=== PATIENT | female | born 1955 | race African-American/Black ===

== ENCOUNTER 2016-10-12 05:24 | Emergency (ER) | payer OTHER ==
--- NOTE | 2016-10-12 06:23 | ER Document Report ---
ED Cardiac - General Mode of Arrival: Ambulatory Information source: Patient TRAVEL OUTSIDE OF THE [place] IN LAST 30 DAYS: No - HPI Patient complains to provider of: Other - chest heaviness Quality of pain: Heaviness Severity now: Mild Severity at worst: Mild <АННА CARSON - Last Filed: 10/12/16 14:58> <ALBERTO ROBBINS - Last Filed: 10/20/16 22:47> - General Chief Complaint: Chest Pain Stated Complaint: CHEST PAIN Notes: Patient is a 61-year-old female who presents to the emergency department today with complaints of chest heaviness with a cough. Patient states she has had this cough for approximately 2 weeks and has had an associated chest heaviness with the cough. Patient states the heaviness is "all over her chest". Patient attempts to describe this heaviness, stating that she feels like she needs to bring something up with the cough but she cannot. Patient states that her cough is usually worse in the mornings. Patient states that she saw a rn internship approximately 2 months ago at the [facility] and she assumes the findinsg were unremarkable as she was never called with results. Patient states the initiating event that had her come to the emergency department today was the fact that she could not sleep overnight last night so that made her nervous. Patient states she has had mild accompanying nausea. Patient denies any shortness of breath, vomiting, diarrhea, or history of PE/DVT. (АННА CARSON) - Related Data Allergies/Adverse Reactions: No Known Allergies Allergy (Unverified 01/12/16 02:10) Home Medications: Current Home Medications Diltiazem HCl [Diltiazem ER] 180 mg PO DAILY 10/12/16 [History] Levothyroxine Sodium [Synthroid 0.15 mg Tablet] 0.15 mg PO DAILY 10/12/16 [ History] Past Medical History - General Information source: Patient - Social History Smoking Status: Never Smoker Cigarette use (# per day): No Frequency of alcohol use: None Drug Abuse: None Lives with: Family Family History: Reviewed & Not Pertinent Patient has suicidal ideation: No Patient has homicidal ideation: No - Past Medical History Cardiac Medical History: Reports: Hx Congestive Heart Failure, Hx Heart Attack, Hx Hypercholesterolemia, Hx Hypertension Pulmonary Medical History: Reports: Hx Asthma Endocrine Medical History: Reports: Hx Hypothyroidism Psychiatric Medical History: Reports: Hx Depression Surgical Hx: Negative <АННА CARSON - Last Filed: 10/12/16 14:58> Review of Systems - Review of Systems Constitutional: No symptoms reported EENT: No symptoms reported Cardiovascular: See HPI, Chest pain Respiratory: See HPI, Cough, Other - chest heaviness. denies: Short of breath Gastrointestinal: See HPI, Nausea. denies: Diarrhea, Vomiting Genitourinary: No symptoms reported Female Genitourinary: No symptoms reported Musculoskeletal: No symptoms reported Skin: No symptoms reported Hematologic/Lymphatic: No symptoms reported Neurological/Psychological: No symptoms reported -: Yes All other systems reviewed and negative <АННА CARSON - Last Filed: 10/12/16 14:58> Physical Exam <АННА CARSON - Last Filed: 10/12/16 14:58> <ALBERTO ROBBINS - Last Filed: 10/20/16 22:47> - Vital signs Vitals: Pulse Ox 99 10/12/16 05:55 - Notes Notes: Physical Exam: General: Alert, appears well. HEENT: Normocephalic. Atraumatic. PERRL. Extraocular movements intact. Oropharynx clear. Neck: Supple. Non-tender. Respiratory: No respiratory distress. Clear and equal breath sounds bilaterally. Cardiovascular: Regular rate and rhythm. Abdominal: Normal Inspection. Non-tender. No distension. Normal Bowel Sounds. Back: Non-tender. No deformity or step off. Extremities: Moves all four extremities. Upper extremities: Normal inspection. Normal ROM. Lower extremities: Normal inspection. No edema. Normal ROM. Neurological: Normal cognition. AAOx4. Normal speech. Psychological: Normal affect. Normal Mood. Skin: Warm. Dry. Normal color. (АННА CARSON) Course - Laboratory Result Diagrams: 10/12/16 06:22 10/12/16 06:22 <АННА CARSON - Last Filed: 10/12/16 14:58> - Laboratory Result Diagrams: 10/12/16 06:22 10/12/16 06:22 <ALBERTO ROBBINS - Last Filed: 10/20/16 22:47> - Re-evaluation Re-evalutation: 10/12/16 14:58 (АННА CARSON) 10/12/16 07:32 Patient presents emergency room chiefly 2 week history of cough and says that she gets tightness in her chest with the cough. It is not associated with sputum production fevers chills recent history of travel surgery immobilization DVT or pulmonary emboli. He has no history of congestive heart failure denies any CO or stents. States that this is not exertional she does not get diaphoretic nauseated no GI upset. She just wishes that she could get something up when she is coughing. She is well-appearing nontoxic in no acute distress with stable vital signs negative acute EKG cardiac enzymes and x-ray. Spoke with the on-call rn internship Dr. Kemp who agreed the patient to be discharged home if his cell phone number which I wrote in the chart for her she is call for follow-up appointment in 2-3 days and discussed reasons for ED return sooner Dr. Carlos cardiology paged via peripheral edp equipment operator at 07:32 will call back is in the shower 10/12/16 15:53 (ALBERTO ROBBINS) - Vital Signs Vital signs: Temp Pulse Resp BP Pulse Ox 98.0 F 82 25 H 185/90 H 99 10/12/16 09:13 10/12/16 05:56 10/12/16 09:01 10/12/16 09:01 10/12/16 09:01 - Laboratory Laboratory results interpreted by me: 10/12/16 06:22 RBC 5.75 H MCV 76 L MCH 24.1 L MCHC 31.7 L RDW 15.0 H Seg Neutrophils % 80.4 H Discharge <АННА CARSON - Last Filed: 10/12/16 14:58> <ALBERTO ROBBINS - Last Filed: 10/20/16 22:47> - Discharge Clinical Impression: Bronchitis, Nonspecific chest pain Condition: Stable Disposition: HOME, SELF-CARE Additional Instructions: Bronchitis You have acute bronchitis. This disease is an infection or inflammation of the air passageways in your lungs. Symptoms usually include cough, low grade fever, shortness of breath, and wheezing. The cough usually persists for a couple of weeks. Most cases of bronchitis get better without antibiotics. We prescribe antibiotics when we believe bacteria are damaging your airways, or if there's high risk the bronchitis will worsen into pneumonia. Increase your fluid intake. A cool mist humidifier may make your lungs more comfortable. An expectorant (cough medicine that loosens phlegm) can help. If you smoke, STOP!!! Recovery from bronchitis can be somewhat slow, but you should see improvement within a day or two. Repeated episodes of bronchitis may result in lung damage -- for example, chronic bronchitis, recurrent pneumonias, or emphysema. Call the doctor if you develop increasing fever, shortness of breath, chest pain, bloody sputum, or otherwise worsen. If you have not improved at all after several days, contact the physician. Chest Pain of Unclear Cause The exact cause of your chest pain isn't clear. Fortunately, there is no evidence of a dangerous medical condition. Further testing may be required to find the source of the pain. Most often, we find that this pain is coming from the chest wall -- the muscles or rib joints in the chest. But chest pain can come from the lung and lung lining, the esophagus, the heart valves or heart lining, and even the stomach or gallbladder. Rest. Eat lightly until the pain is gone. We may prescribe medicine for pain and inflammation. You should call the physician immediately if the pain radiates to the shoulder, jaw or arms; if you start to run a fever or develop a cough; or if you develop shortness of breath, or other new or alarming symptoms. Referrals: MICHELLE ORTA, PNP [Primary Care Provider] - (In call Dr. Carlos at [phone] he is a heart doctor and will arrange for you to be seen in follow-up return for increasing worsening or new symptoms) Scribe Attestation: 10/12/16 09:14 I personally performed the services described in the documentation reviewed the documentation recorded by my scribe in my presence and it accurately and completely records my words and actions (ALBERTO ROBBINS) Scribe Documentation - Scribe Written by Marcia:: Marcia Chacon, 10/12/2016 0827 acting as scribe for :: Fady <АННА CARSON - Last Filed: 10/12/16 14:58>
[2016-10-12 06:47] LABS: ABSOLUTE LYMPHOCYTES (AUTO) 1.2 10^3/uL (0.5-4.7); ABSOLUTE MONOCYTES (AUTO) 0.3 10^3/uL (0.1-1.4); ABSOLUTE NEUT (AUTO) 6.3 10^3/uL (1.7-8.2); BASOPHILS % (AUTO) 0.4 % (0-2); EOSINOPHILS % (AUTO) 0.4 % (0-6); HEMATOCRIT 43.8 % (36.0-47.0); HEMOGLOBIN 13.9 g/dL (12.0-15.5); HGB HCT DIFFERENCE -2.1; LYMPHOCYTES % (AUTO) 14.8 % (13-45); MEAN CORPUSCULAR HEMOGLOBIN 24.1 pg (27.0-33.4); MEAN CORPUSCULAR HGB CONC 31.7 g/dL (32.0-36.0); MEAN CORPUSCULAR VOLUME 76 fl (80-97); RED BLOOD COUNT 5.75 10^6/uL (3.72-5.28); SEGMENTED NEUTROPHILS % (AUTO) 80.4 % (42-78); WHITE BLOOD COUNT 7.9 10^3/uL (4.0-10.5)
[2016-10-12 07:03] LABS: ANION GAP 12 (5-19); BLOOD UREA NITROGEN 18 mg/dL (7-20); CALCIUM 9.3 mg/dL (8.4-10.2); CARBON DIOXIDE 25 mmol/L (22-30); CHLORIDE 103 mmol/L (98-107); GLUCOSE 90 mg/dL (75-110); SODIUM 139.8 mmol/L (137-145)
--- NOTE | 2016-10-12 07:03 | RADIOLOGY REPORT (SQ) ---
EXAM DESCRIPTION: CHEST PA/LAT COMPLETED DATE/TIME: 10/12/2016 6:45 am REASON FOR STUDY: chest pain/ cough COMPARISON: 01/12/2016. EXAM PARAMETERS: NUMBER OF VIEWS: two views TECHNIQUE: Digital Frontal and Lateral radiographic views of the chest acquired. RADIATION DOSE: NA LIMITATIONS: none FINDINGS: LUNGS AND PLEURA: Moderate lung volume. Small atelectasis or scar of the left lower lobe. Interval improvement compared with prior exam from December 2015. MEDIASTINUM AND HILAR STRUCTURES: No masses or contour abnormalities. HEART AND VASCULAR STRUCTURES: Heart normal size. No evidence for failure. BONES: No acute findings. HARDWARE: None in the chest. OTHER: No other significant finding. IMPRESSION: NO SIGNIFICANT RADIOGRAPHIC FINDING IN THE CHEST. TECHNICAL DOCUMENTATION: JOB ID: [id number] [employer]- All Rights Reserved
[2016-10-12 07:16] LABS: TROPONIN I < 0.012 ng/mL
[2016-10-12] MEDS ORDERED: LISINOPRIL 10 MG TABLET PO ONE (07:30)
[2016-10-12] MEDS ORDERED: DILTIAZEM HCL 180 MG CAPSULE.CR PO ONE (07:31)
--- NOTE | 2016-10-12 08:50 | EKG REPORT ---
SEVERITY:- ABNORMAL ECG - SINUS RHYTHM PROBABLE LEFT ATRIAL ABNORMALITY LEFT VENTRICULAR HYPERTROPHY : Confirmed by: aKsie Butler 12-Oct-2016 08:50:01
[2016-10-12 09:05] VITALS: BP 185/90
== END 2016-10-12 09:23 | disposition home or self-care (01) ==
LOC: ER 05:24
DX: J40 Bronchitis, not specified as acute or chronic (principal); R07.9 Chest pain, unspecified; R05 Cough; R11.0 Nausea; Z79.899 Other long term (current) drug therapy
CPT/HCPCS: 36415; 71020; 80048; 83880; 84484; 85025; 93005; 93010; 99285

== ENCOUNTER → 2017-02-01 | Outpatient (CLI) | payer OTHER ==
--- NOTE | 2017-02-01 08:51 | WOMENS IMAGING REPORT ---
EXAM DESCRIPTION: BILAT SCREENING MAMMO W/CAD COMPLETED DATE/TIME: 02/01/2017 7:48 am REASON FOR STUDY: SCREENING MAMMO Z12.31 ENCNTR SCREEN MAMMOGRAM FOR MALIGNANT NEOPLASM OF THA COMPARISON: 08/16/2011, 03/20/2013 TECHNIQUE: Standard craniocaudal and mediolateral oblique views of each breast recorded using [employer] l acquisition. LIMITATIONS: None. FINDINGS: No masses, calcifications or architectural distortion. No areas of suspicion. Read with the assistance of CAD. .[facility] - R2 Cenova Version 1.3 .[facility] - R2 Cenova Version 1.3 .[facility] - R2 Cenova Version 2.4 .[facility] [place] R2 Cenova Version 2.4 .[facility] - R2 Top Cutter Version 9.2 IMPRESSION: NORMAL MAMMOGRAM. BIRADS 1. BREAST DENSITY: b. There are scattered areas of fibroglandular density. BIRAD: 1 NEGATIVE RECOMMENDATION: ROUTINE SCREENING COMMENT: The patient has been notified of the results by letter per SA requirements. Additional no tification policies are in place for contacting patient with suspicious or incomplete findings. Quality ID #[id number]: The [employer] recommends an annual screening mammogram for women aged 40 years or over. This facility utilizes a reminder system to ensure that all patients receive reminder letters, and/or direct phone calls for appointments. This includes reminders for routine scr eening mammograms, diagnostic mammograms, or other Breast Imaging Interventions when appropriate. Th is patient will be placed in the appropriate reminder system. The [employer] (ACR) has developed recommendations for screening MRI of the breast s in certain patient populations, to be used in conjunction with mammography. Breast MRI surveillanc e may be appropriate for women with more than 20% lifetime risk of developing breast cancer as deter mined by genetic testing, significant family history of the disease, or history of mantle radiation f or Hodgkins Disease. ACR Practice Guidelines 2008. TECHNICAL DOCUMENTATION: FINDING NUMBER: (1) ASSESSMENT: (1) JOB ID: [id number] [employer]- All Rights Reserved
== END ==
LOC: WI 07:34
PROVIDERS: ATTEND Nurse Practitioner
DX: Z12.31 Encounter for screening mammogram for malignant neoplasm of breast (principal)
CPT/HCPCS: 77067; G0202

== ENCOUNTER 2017-11-27 16:35 | Emergency (ER) | payer OTHER ==
[2017-11-27] MEDS ORDERED: NORMAL SALINE 1000 ML 1,000 ML IV ONE (17:59)
[2017-11-27] MEDS ORDERED: ONDANSETRON HCL INJ/PF 4 MG/2 ML SDV IV ONE (17:59)
--- NOTE | 2017-11-27 18:02 | ER Document Report ---
ED Medical Screen (RME) - General Chief Complaint: Nausea/Vomiting Stated Complaint: NAUSEA/VOMITING Time Seen by Provider: 11/27/17 17:58 Notes: 62-year-old female presents to the ER with nausea and vomiting that began on Monday. Patient went to [facility] urgent care and had an x-ray and lab work. Was told it was a virus and discharged home. She continued to vomit even after being prescribed Zofran for home. States she is having some abdominal discomfort. Mainly upper. She thinks it is mainly from the vomiting. She denies any chest pain. She states she cannot keep anything down and is come here to the ER. TRAVEL OUTSIDE OF THE [place] IN LAST 30 DAYS: No - Related Data Allergies/Adverse Reactions: No Known Allergies Allergy (Unverified 01/12/16 02:10) Past Medical History - Past Medical History Cardiac Medical History: Reports: Hx Congestive Heart Failure, Hx Heart Attack, Hx Hypercholesterolemia, Hx Hypertension Denies: Hx DVT, Hx Pulmonary Embolism Pulmonary Medical History: Reports: Hx Asthma Neurological Medical History: Denies: Hx Seizures Endocrine Medical History: Reports: Hx Hypothyroidism. Denies: Hx Diabetes Mellitus Type 1, Hx Diabetes Mellitus Type 2, Hx Hyperthyroidism Renal/ Medical History: Denies: Hx Peritoneal Dialysis GI Medical History: Denies: Hx Cirrhosis, Hx Hepatitis Musculoskeltal Medical History: Denies Hx Arthritis Skin Medical History: Denies Hx Eczema, Denies Hx Psoriasis Psychiatric Medical History: Reports: Hx Depression Infectious Medical History: Denies: Hx Hepatitis Past Surgical History: Reports: Hx Section Physical Exam - Vital signs Vitals: Temp Resp BP Pulse Ox 98.3 F 16 194/96 H 99 11/27/17 16:40 11/27/17 16:40 11/27/17 16:40 11/27/17 16:40 - Notes Notes: Abdomen is soft and supple there is a mild epigastric discomfort. No rebound or guarding is noted bowel sounds are diminished Course - Re-evaluation Re-evalutation: 11/27/17 18:01 The patient arrives with nausea and vomiting. She has been seen and given Zofran at [place] urgent care. However she continues to vomit even with Zofran at home. We will give her some IV fluids and IV Zofran we will check some generalized lab work she had an x-ray this afternoon we will get a CT scan without contrast to further differentiate. - Vital Signs Vital signs: Temp Pulse Resp BP Pulse Ox 98.3 F 16 194/96 H 99 11/27/17 16:40 11/27/17 16:40 11/27/17 16:40 11/27/17 16:40 Doctor's Discharge - Discharge Referrals: MATHIEU CAMARGO FNP [Primary Care Provider] - Follow up as needed
[2017-11-27 19:10] LABS: ABSOLUTE LYMPHOCYTES (AUTO) 0.9 10^3/uL (0.5-4.7); ABSOLUTE MONOCYTES (AUTO) 0.4 10^3/uL (0.1-1.4); ABSOLUTE NEUT (AUTO) 7.5 10^3/uL (1.7-8.2); BASOPHILS % (AUTO) 0.3 % (0-2); EOSINOPHILS % (AUTO) 0.3 % (0-6); HEMATOCRIT 40.6 % (36.0-47.0); HEMOGLOBIN 13.1 g/dL (12.0-15.5); LYMPHOCYTES % (AUTO) 9.7 % (13-45); MEAN CORPUSCULAR HGB CONC 32.3 g/dL (32.0-36.0); MEAN CORPUSCULAR VOLUME 75 fl (80-97); MONOCYTES % (AUTO) 4.8 % (3-13); PLATELET COUNT 240 10^3/uL (150-450); RED BLOOD COUNT 5.46 10^6/uL (3.72-5.28); SEGMENTED NEUTROPHILS % (AUTO) 84.9 % (42-78); TOTAL CELLS COUNTED % (AUTO) 100 %; WHITE BLOOD COUNT 8.9 10^3/uL (4.0-10.5)
[2017-11-27 19:19] LABS: APPEARANCE,URINE CLEAR; BILIRUBIN,URINE NEGATIVE (NEGATIVE); COLOR,URINE YELLOW; GLUCOSE, URINE NEGATIVE (NEGATIVE); KETONES,URINE 20 mg/dL (NEGATIVE); LEUKOCYTE ESTERASE,URINE NEGATIVE (NEGATIVE); NITRITE,URINE NEGATIVE (NEGATIVE); PROTEIN,URINE 100 mg/dL (NEGATIVE); URINE SPECIFIC GRAVITY 1.019; UROBILINOGEN,URINE NEGATIVE mg/dL (<2.0)
[2017-11-27 19:29] LABS: ALANINE AMINOTRANSFERASE 14 U/L (9-52); ALBUMIN 4.5 g/dL (3.5-5.0); ALKALINE PHOSPHATASE 123 U/L (38-126); ANION GAP 17 (5-19); ASPARTATE AMINO TRANSFERASE 31 U/L (14-36); BILIRUBIN,DIRECT 0.4 mg/dL (0.0-0.4); BILIRUBIN,TOTAL 0.9 mg/dL (0.2-1.3); BLOOD UREA NITROGEN 19 mg/dL (7-20); CALCIUM 9.7 mg/dL (8.4-10.2); CARBON DIOXIDE 25 mmol/L (22-30); CHLORIDE 105 mmol/L (98-107); GLUCOSE 111 mg/dL (75-110); LIPASE 188.7 U/L (23-300); POTASSIUM 3.5 mmol/L (3.6-5.0); SODIUM 147.3 mmol/L (137-145); TOTAL PROTEIN 8.6 g/dL (6.3-8.2)
--- NOTE | 2017-11-27 19:42 | RADIOLOGY REPORT (SQ) ---
EXAM DESCRIPTION: CT ABD/PELVIS NO ORAL OR IV COMPLETED DATE/TIME: 11/27/2017 7:08 pm REASON FOR STUDY: abdominal pain COMPARISON: None. TECHNIQUE: CT scan of the abdomen and pelvis performed without intravenous or oral contrast. Images reviewed with lung, soft tissue, and bone windows. Reconstructed coronal and sagittal MPR images revi ewed. All images stored on PACS. All CT scanners at this facility use dose modulation, iterative reconstruction, and/or weight based d osing when appropriate to reduce radiation dose to as low as reasonably achievable (ALARA). [facility]: Dose Right [facility]: CareDose [facility]: Dose Right [facility]: Teradose 4D [facility]: [email or web address] RADIATION DOSE: CT Rad equipment meets quality standard of care and radiation dose reduction techniq ues were employed. CTDIvol: 5.4 mGy. DLP: 303 mGy-cm.mGy. LIMITATIONS: None. FINDINGS: LOWER CHEST: No significant findings. No nodules or infiltrates. NON-CONTRASTED LIVER, SPLEEN, ADRENALS: Evaluation limited by lack of IV contrast. No identified sign ificant masses. PANCREAS: No masses. No peripancreatic inflammatory changes. GALLBLADDER: No identified stones by CT criteria. No inflammatory changes to suggest cholecystitis. RIGHT KIDNEY AND URETER: No suspicious masses. Assessment limited by lack of IV contrast. No signif icant calcifications. No hydronephrosis or hydroureter. LEFT KIDNEY AND URETER: No suspicious masses. Assessment limited by lack of IV contrast. No signifi cant calcifications. No hydronephrosis or hydroureter. AORTA AND RETROPERITONEUM: No aneurysm. No retroperitoneal masses or adenopathy. BOWEL AND PERITONEAL CAVITY: Diverticulosis. No diverticulitis. APPENDIX: Normal. PELVIS, BLADDER, AND ABDOMINAL WALL:No abnormal masses. No free fluid. Bladder normal. BONES: No significant findings. OTHER: No other significant finding. IMPRESSION: NO SIGNIFICANT OR ACUTE PROCESS IN THE ABDOMEN OR PELVIS. COMMENT: Quality ID # [id number]: Final reports with documentation of one or more dose reduction techniques (e.g., Automated exposure control, adjustment of the mA and/or kV according to patient size, use of iterative reconstruction technique) TECHNICAL DOCUMENTATION: JOB ID: [id number] [employer]- All Rights Reserved Reading location - IP/workstation name: [email or web address]
--- NOTE | 2017-11-27 20:34 | EKG REPORT ---
SEVERITY:- ABNORMAL ECG - SINUS RHYTHM LEFT ATRIAL ABNORMALITY : Confirmed by: Inder Cantu MD 27-Nov-2017 20:34:11
[2017-11-27] MEDS ORDERED: SUCRALFATE 1 GM TABLET PO ONE (21:00)
[2017-11-27] MEDS ORDERED: MORPHINE SULFATE 10 MG/ML INJ IV ONE (21:00)
[2017-11-27] MEDS ORDERED: METOCLOPRAMIDE HCL 10 MG TABLET PO ONE (21:00)
[2017-11-27] MEDS ORDERED: FAMOTIDINE 20 MG TABLET PO ONE (21:00)
--- NOTE | 2017-11-27 21:33 | ER Document Report ---
ED GI/ - General Chief Complaint: Nausea/Vomiting Stated Complaint: NAUSEA/VOMITING Time Seen by Provider: 11/27/17 17:58 Notes: Patient is a 62-year-old female comes emergency department for chief complaint of upper abdominal pain, vomiting, and diarrhea. Symptoms started Monday (just over 3 days ago), she was evaluated by primary care, told she had a virus, placed on Zofran, she states she still has had diarrhea, vomiting, and abdominal pain. She states that today she vomited about 6 times and became concerned she could not eat. She thinks she has had fevers at night but she is unsure. She denies hematemesis or blood in diarrhea of note. She denies chest pain, dizziness, passing out. No obvious sick contacts, no recent antibiotics, no history of C. difficile. Past medical history includes CAD, hypertension, hyperlipidemia, CHF, peptic ulcer disease (not on therapy for this), and C- section. She states she was scheduled for an endoscopy in the past but she canceled it. TRAVEL OUTSIDE OF THE [place] IN LAST 30 DAYS: No - Related Data Allergies/Adverse Reactions: erythromycin base Allergy (Verified 11/27/17 21:46) Past Medical History - General Information source: Patient - Social History Smoking Status: Never Smoker Frequency of alcohol use: None Drug Abuse: None Lives with: Family Family History: Reviewed & Not Pertinent - Past Medical History Cardiac Medical History: Reports: Hx Congestive Heart Failure, Hx Heart Attack, Hx Hypercholesterolemia, Hx Hypertension Denies: Hx DVT, Hx Pulmonary Embolism Pulmonary Medical History: Reports: Hx Asthma Neurological Medical History: Denies: Hx Seizures Endocrine Medical History: Reports: Hx Hypothyroidism. Denies: Hx Diabetes Mellitus Type 1, Hx Diabetes Mellitus Type 2, Hx Hyperthyroidism Renal/ Medical History: Denies: Hx Peritoneal Dialysis GI Medical History: Denies: Hx Cirrhosis, Hx Hepatitis Musculoskeletal Medical History: Denies Hx Arthritis Skin Medical History: Denies Hx Eczema, Denies Hx Psoriasis Psychiatric Medical History: Reports: Hx Depression Infectious Medical History: Denies: Hx Hepatitis Past Surgical History: Reports: Hx Section - Immunizations Hx Diphtheria, Pertussis, Tetanus Vaccination: Yes Review of Systems - Review of Systems Constitutional: No symptoms reported EENT: No symptoms reported Cardiovascular: No symptoms reported Respiratory: No symptoms reported Gastrointestinal: See HPI Genitourinary: No symptoms reported Female Genitourinary: No symptoms reported Musculoskeletal: No symptoms reported Skin: No symptoms reported Hematologic/Lymphatic: No symptoms reported Neurological/Psychological: No symptoms reported Physical Exam - Vital signs Vitals: Temp Resp BP Pulse Ox 98.3 F 16 194/96 H 99 11/27/17 16:40 11/27/17 16:40 11/27/17 16:40 11/27/17 16:40 - Notes Notes: GENERAL: Alert, interacts well. No acute distress. HEAD: Normocephalic, atraumatic. EYES: Pupils equal, round, and reactive to light. Extraocular movements intact. ENT: Oral mucosa dry, tongue midline. NECK: Full range of motion. Supple. Trachea midline. LUNGS: Clear to auscultation bilaterally, no wheezes, rales, or rhonchi. No respiratory distress. HEART: Regular rate and rhythm. No murmur ABDOMEN: Soft, non-tender. Non-distended. Bowel sounds present in all 4 quadrants. EXTREMITIES: Moves all 4 extremities spontaneously. No edema, normal radial and dorsalis pedis pulses bilaterally. No cyanosis. BACK: no cervical, thoracic, lumbar midline tenderness. No saddle anesthesia, normal distal neurovascular exam. NEUROLOGICAL: Alert and oriented x3. Normal speech. [cranial nerves II through XII grossly intact]. PSYCH: Normal affect, normal mood. SKIN: Warm, dry, normal turgor. No rashes or lesions noted. Course - Re-evaluation Re-evalutation: CBC unremarkable, chemistry showing borderline hypokalemia, unremarkable renal functioning, generally unremarkable otherwise. Lipase is not elevated. Urinalysis shows ketones but no infection. Reviewed CT of the abdomen and pelvis without contrast from triage and this shows no acute findings. Patient is actually quite well-appearing on exam, she does have dry mucous membranes, I do not appreciate any tenderness on her abdominal exam including in the epigastric area. No guarding or rigidity. Patient hypertensive initially but no tachycardia or hypotension. No fever. Discussed with patient. Will attempt to get a stool sample, will also treat her with Carafate, Pepcid, pain medicine at this time to see if she can tolerate p.o. medication with suspected underlying peptic ulcer disease. Patient unable to provide a stool sample. No diarrhea during her stay here. No vomiting. Patient tolerated medications very well. Her blood pressure is trending up, however when I evaluated her she had already taken her medications for blood pressure which she missed earlier a few minutes ago. No chest pain or headache. No current complaints. Smiling and well-appearing. Asking to go home. Discussed results again with patient, treatments, follow-up, and return precautions in detail. Patient states understanding and agreement. - Vital Signs Vital signs: Temp Pulse Resp BP Pulse Ox 98.4 F 69 18 183/67 H 99 11/27/17 23:10 11/27/17 21:32 11/27/17 23:01 11/27/17 23:01 11/27/17 23:01 - Laboratory Result Diagrams: 11/27/17 18:58 11/27/17 18:58 Laboratory results interpreted by me: 11/27/17 11/27/17 11/27/17 18:58 18:58 18:58 RBC 5.46 H MCV 75 L MCH 24.0 L RDW 15.0 H Seg Neutrophils % 84.9 H Lymphocytes % 9.7 L Sodium 147.3 H Potassium 3.5 L Glucose 111 H Total Protein 8.6 H Urine Protein 100 H Urine Ketones 20 H Urine Blood MODERATE H Discharge - Discharge Clinical Impression: Nausea vomiting and diarrhea, Upper abdominal pain Condition: Stable Disposition: HOME, SELF-CARE Additional Instructions: Your CAT scan does not show any concerning findings, your workup shows dehydration but is nonspecific. Your evaluation and symptoms are most consistent with inflammation of your upper gastrointestinal tract, probably also ulcers of the stomach. Take Carafate and Pepcid as prescribed, take Reglan if needed for nausea, take [place] as needed for pain (this can constipate, you may need lits-pds-[id number] stool softener such as MiraLAX or Colace as well). Start with fluids, then bland food. Avoid NSAIDs, caffeine, spicy food, alcohol, smoking. Follow-up with primary care, you will likely need gastroenterology follow-up and management as well, see referral listed. Return if you worsen in anyway including severe pain, vomiting blood, black stools, uncontrolled vomiting, spiking fever, or any other concerning or worsening symptoms. Prescriptions: Famotidine [Pepcid 20 mg Tablet] 20 mg PO BID #20 tablet Hydrocodone/Acetaminophen [[place] 5-325 mg Tablet] 1 - 2 tab PO ASDIR #10 tablet Metoclopramide HCl [Reglan] 5 mg PO ASDIR PRN #30 tablet PRN Reason: Sucralfate [Carafate 1 gm Tablet] 1 gm PO QID #20 tablet Referrals: MICHELLE MI MD [ACTIVE STAFF] - Follow up in 1 week
[2017-11-27] MEDS ORDERED: HYDROCODONE/ACETAMINOPHEN 5-325 MG (6 TAB/ER DISP) PO PRN (22:57)
[2017-11-27 23:09] VITALS: BP 183/67
== END 2017-11-27 23:16 | disposition home or self-care (01) ==
LOC: ER 16:35
DX: R11.2 Nausea with vomiting, unspecified (principal); R10.10 Upper abdominal pain, unspecified; R19.7 Diarrhea, unspecified; I25.10 Atherosclerotic heart disease of native coronary artery without angina pectoris; I10 Essential (primary) hypertension; I25.2 Old myocardial infarction; Z87.11 Personal history of peptic ulcer disease; Z88.1 Allergy status to other antibiotic agents
CPT/HCPCS: 93005; 99284; 96361; 96374; 96375; 36415; 83690; 85025; 80053; 81001; 84484; 74176; 93010; J2270; J2405; J7030

== ENCOUNTER 2019-07-29 17:43 | Emergency (ER) | payer OTHER ==
[2019-07-29 18:06] LABS: ABSOLUTE LYMPHOCYTES (AUTO) 1.6 10^3/uL (0.5-4.7); ABSOLUTE MONOCYTES (AUTO) 0.2 10^3/uL (0.1-1.4); ABSOLUTE NEUT (AUTO) 3.9 10^3/uL (1.7-8.2); BASOPHILS % (AUTO) 0.4 % (0-2); EOSINOPHILS % (AUTO) 0.8 % (0-6); HEMATOCRIT 40.5 % (36.0-47.0); HEMOGLOBIN 13.1 g/dL (12.0-15.5); MEAN CORPUSCULAR HEMOGLOBIN 23.9 pg (27.0-33.4); MEAN CORPUSCULAR HGB CONC 32.3 g/dL (32.0-36.0); MEAN CORPUSCULAR VOLUME 74 fl (80-97); PLATELET COUNT 195 10^3/uL (150-450); RED BLOOD COUNT 5.47 10^6/uL (3.72-5.28); RED CELL DISTRIBUTION WIDTH 16.2 % (11.5-14.0); SEGMENTED NEUTROPHILS % (AUTO) 67.8 % (42-78); TOTAL CELLS COUNTED % (AUTO) 100 %; WHITE BLOOD COUNT 5.8 10^3/uL (4.0-10.5)
[2019-07-29 18:21] LABS: APPEARANCE,URINE SLIGHTLY-CLOUDY; BILIRUBIN,URINE NEGATIVE (NEGATIVE); COLOR,URINE YELLOW; GLUCOSE, URINE NEGATIVE (NEGATIVE); KETONES,URINE NEGATIVE (NEGATIVE); LEUKOCYTE ESTERASE,URINE TRACE (NEGATIVE); NITRITE,URINE NEGATIVE (NEGATIVE); PROTEIN,URINE NEGATIVE (NEGATIVE); UROBILINOGEN,URINE NEGATIVE mg/dL (<2.0)
[2019-07-29 18:24] LABS: ALBUMIN 4.6 g/dL (3.5-5.0); ALKALINE PHOSPHATASE 108 U/L (38-126); ANION GAP 7 (5-19); ASPARTATE AMINO TRANSFERASE 18 U/L (14-36); BILIRUBIN,TOTAL 0.5 mg/dL (0.2-1.3); BLOOD UREA NITROGEN 13 mg/dL (7-20); CALCIUM 9.5 mg/dL (8.4-10.2); CARBON DIOXIDE 27 mmol/L (22-30); CHLORIDE 109 mmol/L (98-107); GLUCOSE 92 mg/dL (75-110); POTASSIUM 3.1 mmol/L (3.6-5.0); TOTAL PROTEIN 7.5 g/dL (6.3-8.2)
[2019-07-29 18:30] LABS: ACETAMINOPHEN < 10 ug/mL (10-30); ALCOHOL < 10 mg/dL (NONE DETECTED); SALICYLATE < 1.0 mg/dL (2.0-20.0)
[2019-07-29 18:32] LABS: URINE AMPHETAMINES SCREEN NEGATIVE; URINE BARBITURATES SCREEN NEGATIVE; URINE BENZODIAZEPINES SCREEN NEGATIVE; URINE COCAINE SCREEN NEGATIVE; URINE MARIJUANA (THC) SCREEN NEGATIVE; URINE METHADONE SCREEN NEGATIVE; URINE PHENCYCLIDINE SCREEN NEGATIVE
--- NOTE | 2019-07-29 18:35 | EKG REPORT ---
SEVERITY:- ABNORMAL ECG - SINUS RHYTHM LEFT ATRIAL ABNORMALITY PROBABLE LEFT VENTRICULAR HYPERTROPHY BORDERLINE PROLONGED QT INTERVAL : Confirmed by: Inder Cantu MD 29-Jul-2019 18:35:23
--- NOTE | 2019-07-29 18:45 | ER Document Report ---
Entered by ROSA VALENCIA SCRIBE 07/29/191811 Acting as scribe for:ALDO CHAVIRA, DO ED Substance Abuse / Acc. OD - General Chief Complaint: Overdose Stated Complaint: OVERDOSE Time Seen by Provider: 07/29/19 18:09 Primary Care Provider: MATHIEU CAMARGO FNP [Primary Care Provider] - Follow up as needed Mode of Arrival: Medic Information source: Patient, Emergency Med Personnel Notes: This 63 year old female patient with a history of hypertension and depression brought in by EMS presents to the ED today with complaints of a possible overdose that occurred prior to arrival today. EMS reports that upon their arrival, patient was nonverbal and only responded to painful stimuli. They state that the patient had a prescription for x30 pills of Ambien filled on 07/17/19 and that she only had x4 left in the bottle. Patient notes that she had a syncopal episode after she took "a lot of pills." She reports that she fell onto the bed and when she tried to get up, she fell on the floor. She notes that her called EMS due to her condition. She denies suicidal ideation or pain, stating that she was depressed about losing x2 of her children and spousal issues. She denies history of diabetes, cardiac problems, or COPD; however, the patient is confused and cannot report a reasonable history. TRAVEL OUTSIDE OF THE [place] IN LAST 30 DAYS: No - Related Data Allergies/Adverse Reactions: erythromycin base Allergy (Verified 11/27/17 21:46) Past Medical History - General Information source: Patient - Social History Smoking Status: Current Every Day Smoker Cigarette use (# per day): Yes Chew tobacco use (# tins/day): No Smoking Education Provided: No Lives with: Spouse/Significant other Family History: Reviewed & Not Pertinent Patient has suicidal ideation: No Patient has homicidal ideation: No - Past Medical History Cardiac Medical History: Reports: Hx Congestive Heart Failure, Hx Heart Attack, Hx Hypercholesterolemia, Hx Hypertension Pulmonary Medical History: Reports: Hx Asthma Endocrine Medical History: Reports: Hx Hypothyroidism GI Medical History: Reports: Hx Gastroesophageal Reflux Disease Psychiatric Medical History: Reports: Hx Depression Past Surgical History: Reports: Hx Section - Immunizations Hx Diphtheria, Pertussis, Tetanus Vaccination: Yes Review of Systems - Review of Systems Constitutional: See HPI, Other - Possible overdose EENT: No symptoms reported Cardiovascular: See HPI, Syncope Respiratory: No symptoms reported Gastrointestinal: No symptoms reported Genitourinary: No symptoms reported Female Genitourinary: No symptoms reported Musculoskeletal: See HPI. denies: Muscle pain Skin: No symptoms reported Hematologic/Lymphatic: No symptoms reported Neurological/Psychological: See HPI, Depression. denies: Suicidal ideation -: Yes All other systems reviewed and negative Physical Exam - Vital signs Vitals: Temp Resp BP Pulse Ox 97.8 F 22 H 190/103 H 100 07/29/19 17:51 07/29/19 17:51 07/29/19 17:51 07/29/19 17:51 - General General appearance: Alert, Other - Confused, thinks it is June. Cannot report a reasonable history - HEENT Head: Normocephalic, Atraumatic Eyes: Normal Pupils: PERRL - Respiratory Respiratory status: No respiratory distress Chest status: Nontender Breath sounds: Normal Chest palpation: Normal - Cardiovascular Rhythm: Regular Heart sounds: Normal auscultation Murmur: No Friction rub: No Gallop: None auscultated - Abdominal Inspection: Normal Distension: No distension Bowel sounds: Normal Tenderness: Nontender - Abdomen soft Organomegaly: No organomegaly - Back Back: Normal, Nontender - Extremities General upper extremity: Normal inspection General lower extremity: Normal inspection - Neurological Neuro grossly intact: Yes Cognition: Confused Speech: Other - Speaks in clear sentences - Psychological Associated symptoms: Confused - Skin Skin Temperature: Warm Skin Moisture: Dry Skin Color: Normal Course - Re-evaluation Re-evalutation: 07/29/19 19:07 MDM 63 year old female arrives from home after a presumed ambien overdose. She lives at home with her and "passed out" attempting to ambulate. Confused here - Repetitive sentences and "Adama" is said to be her doctor. Upset with and alledges infidelity. Thinks it is June. - Vital Signs Vital signs: Temp Pulse Resp BP Pulse Ox 97.4 F 19 140/63 H 93 07/29/19 22:31 07/30/19 00:01 07/30/19 00:01 07/30/19 00:01 - Laboratory Result Diagrams: 07/29/19 17:50 07/29/19 17:50 Laboratory results interpreted by me: 07/29/19 07/29/19 07/29/19 17:50 17:50 17:50 RBC 5.47 H MCV 74 L MCH 23.9 L RDW 16.2 H Potassium 3.1 L Chloride 109 H Est GFR (MDRD) Non-Af 57 L Ur Leukocyte Esterase TRACE H Salicylates < 1.0 L Acetaminophen < 10 L Discharge - Discharge Clinical Impression: Ambien accidental overdose Qualifiers: Encounter type: initial encounter Qualified Code(s): T42.6X1A - Poisoning by other antiepileptic and sedative-hypnotic drugs, accidental (unintentional), initial encounter Condition: Good Disposition: PSYCH HOSP/UNIT Referrals: MATHIEU CAMARGO FNP [Primary Care Provider] - Follow up as needed I personally performed the services described in the documentation, reviewed and edited the documentation which was dictated to the scribe in my presence, and it accurately records my words and actions.
[2019-07-29] MEDS ORDERED: HALOPERIDOL LACTATE INJ 5 MG/1 ML VIAL IM ONE (18:53)
[2019-07-29] MEDS ORDERED: LORAZEPAM INJ 2 MG/1 ML VIAL IM ONE (18:54)
[2019-07-29] MEDS ORDERED: DIPHENHYDRAMINE HCL 50 MG/ML VIAL IM ONE (18:54)
[2019-07-29] MEDS ORDERED: POTASSIUM CHLORIDE 20 MEQ PACKET PO ONE (19:10)
[2019-07-29] MEDS ORDERED: DILTIAZEM HCL 180 MG CAPSULE.CR PO ONE (19:31)
--- NOTE | 2019-07-29 20:05 | PSYCHOLOGICAL NOTE ---
Psych Note - Psych Note Date seen by psych provider: 07/29/19 Time seen by psych provider: 19:45 Psych Note: Reason for Consult: overdose Patient presented to [facility] ED via EMS after suspected overdose on Ambien. Patient filled her prescription on 07/16/2001 for 30 10mg pills and only 4 are left. it is unclear if the patient has been misusing her medications and taking 2 a day (or some other combination) or if she attempted to harm herself by taking all 13 (if she has been taking them as directed) missing pills. Patient originally arrived nonverbal and only responsive to painful stimuli, but she has since "awakened" and pulled out her IV and re-dressed. Patient did disclose martial discord and depression surrounding losing her 2 children (the last reportedly last December). Patient is currently unable to engage in evaluation due to needing medication to calm her. A 24 hour petition for evaluation has been signed and put into the patient's chart to ensure the patient has a psychiatric evaluation once the medication has cleared her system.
[2019-07-30 07:36] LABS: ANION GAP 5 (5-19); BLOOD UREA NITROGEN 14 mg/dL (7-20); CALCIUM 9.2 mg/dL (8.4-10.2); CARBON DIOXIDE 27 mmol/L (22-30); CHLORIDE 110 mmol/L (98-107); GLUCOSE 102 mg/dL (75-110); POTASSIUM 3.6 mmol/L (3.6-5.0)
--- NOTE | 2019-07-30 08:10 | EKG REPORT ---
SEVERITY:- ABNORMAL ECG - SINUS RHYTHM PROBABLE LEFT ATRIAL ABNORMALITY LVH WITH SECONDARY REPOLARIZATION ABNORMALITY : Confirmed by: Inder Cantu MD 30-Jul-2019 08:09:49
[2019-07-30] MEDS ORDERED: LEVOTHYROXINE SODIUM 0.112 MG TABLET PO ONE (10:13)
[2019-07-30] MEDS ORDERED: ATORVASTATIN CALCIUM 40 MG TABLET PO ONE (10:13)
[2019-07-30] MEDS ORDERED: CLONIDINE HCL 0.1 MG TABLET PO ONE (10:14)
[2019-07-30] MEDS ORDERED: LISINOPRIL 10 MG TABLET PO ONE (10:14)
[2019-07-30] MEDS ORDERED: HALOPERIDOL 5 MG TABLET PO ONE (10:15)
[2019-07-30] MEDS ORDERED: BENZTROPINE MESYLATE 1 MG TABLET PO ONE (10:15)
--- NOTE | 2019-07-30 10:17 | ER Document Report ---
Doctor's Note Notes: 07/30/19 10:16 Patient is standing in the doorway, incessantly talking and annoying anyone and everyone around her. I reviewed the outside pharmacy records that are available, and have ordered her morning medications based on that review. She will also be given a dose of Haldol and Cogentin and see if that will help calm her down while we are waiting for the psychiatry workers to see her.
[2019-07-30 14:16] VITALS: BP 135/61
--- NOTE | 2019-07-30 18:17 | PSYCHOLOGICAL NOTE ---
Psych Note - Psych Note Date seen by psych provider: 07/30/19 Time seen by psych provider: 13:00 Psych Note: Reason for Consult: Overdose Patient reports that EMS brought her to [facility] because "I passed out because I took too much medication." Patient denies that she was trying to kill herself states that she normally takes 1-1/2 tablets of her Ambien at night and sometimes takes a tablet during the day when she wants to take a nap. Patient states that she has been having marital discord however has been for a year and a half. She reports that her has been having an affair and even providing money to this other person. She reports that at her age all that really happens is that her feelings are hurt. She denies that they would end their relationship or that she would run off to stay with her sister like she used to do when they were younger. Patient reports she was just trying to relax and get some rest. Clinician discussed the concerns that the patient is not taking her medications as prescribed i.e. currently she is prescribed 1 tablet at night however she is currently taking 1-1/2 and sometimes another 1 in the day. Clinician provided psychoeducation on tolerance, dependency, and addiction. Patient confirms she will talk to her outpatient provider about her other options to assist in helping her sleep, she reports she was unaware how bad it is to overuse medications that are addictive. Patient is alert and orientated to person, place time and circumstance. Mood is overall euthymic with congruent affect as evidenced by smiling, laughing and engaging with clinician. Patient denies suicidal and homicidal ideation. Patient is well groomed and wearing jewelry (rings and gold hoop earrings). Lesions are absent and behaviors congruent with an intact reality based presentation i.e. organized and linear thought processes. Eye contact was well- maintained. Conversational speech is within normal rate, tone and prosody. Intellectual abilities appear to be within the average range. Attention and concentration are good. Insight, judgment, impulse control is fair. Impression/Plan: Patient is recommended for rescind of 24 hour petition of evaluation and is cleared from acute psychiatric services. Patient admitted to misusing her medication of Ambien. Patient is prescribed 1tab of 10mg every night but she has been taking 1 and a half tabs every night and takes one during the day "sometimes" when she wants to take a nap. Patient denies she was trying to hurt herself and states the situation with her is not new. They has been for a year and a half and his infidelity has been an issue. Patient's daughter's have (one was Jan 02, 2019 and the other was "many, many years ago"). Patient received psychoeducation on the importance of taking medications as directed. She was advised to talk with her provider if she felt she needed an adjustment to her sleep aid since her current is not working at the prescribed dose. Patient was also provided psychoeducation on addict medications. Dr. Patel was consulted on the care and management of this patient; attending physician is in agreement with recommendations and disposition.
== END 2019-07-30 14:12 | disposition home or self-care (01) ==
LOC: EEVIPCON 17:43 → ER 17:43
DX: T42.6X2A Poisoning by other antiepileptic and sedative-hypnotic drugs, intentional self-harm, initial encounter (principal); Y92.9 Unspecified place or not applicable
CPT/HCPCS: 93005 ×2; 99285; 96372; 96374; 36415; 80307 ×4; 85025; 80048; 80053; 81001; 93010 ×2; J1200; J1630; J2060; J3490